=== PATIENT | female | born 1975 | race Caucasian/White ===

== ENCOUNTER 2020-12-02 11:06 | Emergency (ER) | payer OTHER ==
[2020-12-02] MEDS ORDERED: Metoclopramide HCl 10 MG/2 ML VIAL ONE (11:28)
[2020-12-02] MEDS ORDERED: Acetaminophen 500 MG TAB ONE (11:28)
[2020-12-02] MEDS ORDERED: diphenhydrAMINE 50 MG/ML VIAL ONE (11:28)
[2020-12-02] MEDS ORDERED: Metoclopramide 10 MG/10 ML UDCUP ONE (11:28)
[2020-12-02 11:37] LABS: #Eosinphils 0.1 thou/uL (0.0-0.7); #Lymphocytes 2.2 thou/uL (1.20-3.40); #Monocytes 0.5 thou/uL (0.11-0.59); %Basophils 0.4 % (0.0-1.0); %Eosinophils 0.9 % (0.0-10.0); %Lymphocytes 18.8 % (21.0-51.0); %Monocytes 3.8 % (0.0-10.0); %Neutrophils 76.1 % (42.0-75.0); Hemoglobin 14.2 g/dL (12.0-16.0); Mean Corpuscular HGB CONC 33.3 g/dL (32.0-36.0); Mean Corpuscular Volume 93.1 fL (78.0-98.0); Mean Platelet Volume 6.7 fL (7.4-10.4); Platelet Count 293 thou/uL (130-400); RBC Distribution Width 11.2 % (11.5-14.5); Red Blood Cell (RBC) Count 4.57 mill/uL (4.20-5.40); White Blood Cell (WBC) Count 11.8 thou/uL (4.8-10.8)
[2020-12-02 11:47] LABS: BHCG - Serum Negative (NEGATIVE); Pregs Control Background? CLEAR/WHITE (CLR/WHITE); Pregs Control Bar Appear? YES (CONTROL BAR)
[2020-12-02] MEDS ORDERED: Loperamide HCl 2 MG CAP ONE (11:49)
[2020-12-02 11:56] LABS: ALT (SGPT) 13 U/L (8-55); AST (SGOT) 13 U/L (5-34); Albumin 3.9 g/dL (3.5-5.0); Alkaline Phosphatase 36 U/L (40-110); Anion Gap 10 mmol/L (10-20); BUN (Urea Nitrogen) 16 mg/dL (7.0-18.7); Bilirubin, Total 0.6 mg/dL (0.2-1.2); Calc. Creatinine Clearance 0 mL/min (70-130); Calcium 8.3 mg/dL (7.8-10.44); Carbon Dioxide 23 mmol/L (22-29); Chloride 107 mmol/L (98-107); Globulin 3.1 g/dL (2.4-3.5); Glucose 141 mg/dL (70-105); Potassium 3.4 mmol/L (3.5-5.1); Sodium 137 mmol/L (136-145)
[2020-12-02] MEDS ORDERED: Ketorolac Tromethamine 30 MG/ML VIAL ONE (12:13)
[2020-12-02] MEDS ORDERED: Magnesium 2 GM/50 ML BAG (IN WATER) ONE (12:13)
--- NOTE | 2020-12-02 13:18 | RAD ---
PORTABLE CHEST: HISTORY: COVID positive with worsening symptoms. FINDINGS: The heart size and mediastinum are within normal limits. The lungs are clear of any infiltrative pro cess. There are no significant bony findings. IMPRESSION: No active intrathoracic disease. POS: OFF
--- NOTE | 2020-12-02 13:23 | CT ---
CT OF BRAIN PERFORMED WITHOUT CONTRST ENHANCEMENT: HISTORY: Headaches and dizziness. The ventricular and cisternal system is within normal limits. There are no signs of intracerebral he morrhage or extraaxial fluid collection. The mastoid air cells and visualized sinuses are clear. IMPRESSION: No acute intracranial abnormalities. POS: OFF
== END 2020-12-02 15:22 | disposition home or self-care (01) ==
LOC: ERS 11:06
DX: U07.1 COVID-19 (principal); R29.700 NIHSS score 0; F17.210 Nicotine dependence, cigarettes, uncomplicated
CPT/HCPCS: 70450; 71045; 80053; 84484; 84703; 85025; 93005; 94760; 96365; 96367; 96375; J1200; J1885; J2765; J3475

== ENCOUNTER 2021-06-29 11:02 | Emergency (ER) | payer OTHER, SELFPAY | END 2021-06-29 13:08 | disposition home or self-care (01) | LOC: ERS 11:02 | DX: R21 Rash and other nonspecific skin eruption (principal); F17.210 Nicotine dependence, cigarettes, uncomplicated; Z79.899 Other long term (current) drug therapy | CPT/HCPCS: 99282 ==